=== PATIENT | male | born 1940 | race Caucasian/White ===

== ENCOUNTER 2022-07-27 17:10 | Emergency (ER) | payer MEDICARE, BC ==
[2022-07-27] VITALS (12 sets, daily range): BP systolic 122–146; BP diastolic 55–84
[~2022-07-27] VITALS: Ht 167.6 cm; Wt 70.0 kg
[~2022-07-27 17:10] MED LIST: ADLT ASA LOW81 MG PO; ASA LO-DOSE81 MG OR; ASPIR-LOW81 MG OR; ATUSS DS OR; AZOR PO; AZOR1 TA2 PO; COSOPT1 ML OP; COSOPT1 ML OU; FISH OIL CON1000 MG OR; GARLIC500 MG OR; GLUCOSAMINE1 TAB OR; LEVAQUIN500 MG OR; LIPITOR20 MG PO; LIPITOR40 MG PO; LUMIGAN0.03 % OU; NAPROSYN500 MG PO; PENICILLN VK500 MG PO; PLAVIX75 MG OR; SAW PALMETTO OR; SIMVASTATIN20 MG OR; TENORMIN50 MG PO; ULTRAM50 M1 PO; [UNRECOGNIZED DRUG - REMARK]
[2022-07-27 17:45] LABS: IMMATURE GRANULOCYTES 0.2 % (0.0-5.0); MEAN CELL VOLUME 95.7 fL CALC (80.0-100.0); MEAN CORPUSCULAR HGB 31.9 pG CALC (26.0-32.0); MEAN CORPUSCULAR HGB CONC 33.3 g/dL CAL (32.0-36.0); NEUT# 3.9 thou/uL (1.82-7.42); RED BLOOD COUNT 4.39 mill/uL (4.70-6.10); RED CELL DISTRI WIDTH 13.9 % (11.5-15.5)
[2022-07-27 17:50] LABS: ALBUMIN 3.5 g/dL (3.2-5.0); ALKALINE PHOSPHATASE 53 u/l (38-126); BILIRUBIN, TOTAL 0.6 mg/dL (0.0-1.4); BUN 5 mg/dL (8-23); BUN/CREATININE RATIO 7 (12-20 (CALC)); CARBON DIOXIDE 27 mmol/l (22-30); CHLORIDE 94 mmol/l (95-108); CREATININE 0.7 mg/dL (0.7-1.3); ETHYL ALCOHOL 0 mg/dl (0-30); GFR FOR AFR.AMER. > 60 ML/MIN (>=60 (CALC)); GFR OTHER RACES > 60 ML/MIN (>=60 (CALC)); SGOT/AST 31 u/l (19-48); SODIUM 132 mmol/l (137-146); TOTAL PROTEIN 6.2 g/dL (6.3-8.2)
[2022-07-27 17:51] LABS: ANION GAP 14 (6-22 (CALC))
[2022-07-27 17:53] LABS: URINE BILIRUBIN - DIPSTICK NEGATIVE (NEGATIVE); URINE COLOR YELLOW; URINE GLUCOSE - DIPSTICK NEGATIVE (NEGATIVE); URINE KETONE NEGATIVE (NEGATIVE)
[2022-07-27 17:54] LABS: URINE BLOOD DIPSTICK TRACE-INTACT (NEGATIVE); URINE LEUK ESTERASE NEGATIVE (NEGATIVE); URINE NITRITE - DIPSTICK NEGATIVE (Negative); URINE PROTEIN - DIPSTICK NEGATIVE (NEG-TRACE); URINE SPECIFIC GRAVITY <=1.005; URINE UROBILINOGEN - DIPSTICK 0.2 E.U./dL (0.2)
[2022-07-27] MEDS ORDERED: K-TAB20 MEQ PO (18:14)
[2022-07-27] MEDS ORDERED: MIRALAX17 GM PO (18:15)
== END 2022-07-27 20:05 | disposition home or self-care (01) ==
LOC: ED 17:10
PROVIDERS: Family Medicine
DX: K59.00 Constipation, unspecified (principal); I10 Essential (primary) hypertension; Z20.822 Contact with and (suspected) exposure to COVID-19